=== PATIENT | male | born 1980 ===

== ENCOUNTER 2017-07-03 11:11 | Emergency (ER) | payer OTHER ==
[~2017-07-03] VITALS: Ht 182.9 cm; Wt 90.2 kg
[2017-07-03 11:16] VITALS: BP 144/87; PULSE 63; TEMP 36.6; O2SAT 96; Ht 182.9 cm; Wt 90.2 kg
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
== END 2017-07-03 11:45 | disposition home or self-care (01) ==
LOC: C.EDB 11:13 → C.EDD 11:45
DX: S00.03XA Contusion of scalp, initial encounter (principal); V87.7XXA Person injured in collision between other specified motor vehicles (traffic), initial encounter